=== PATIENT | male | born 1980 | race Caucasian/White ===

== ENCOUNTER 2017-11-18 19:01 | Emergency (ER) | payer OTHER ==
[2017-11-18 19:06] VITALS: BP 124/81; PULSE 72; RESP 16; TEMP 98.5; O2SAT 98
[2017-11-18 20:05] LABS: BASO % 0.6 % (0.0-2.0); EOS % 0.5 % (0.0-4.0); HEMOGLOBIN 15.4 g/dL (12.0-18.0); LYMPH # 1.7 K/uL (1.0-4.3); LYMPH % 25.5 % (20.0-40.0); MEAN CELL VOLUME 83.6 fl (80.0-94.0); MEAN CORPUSCULAR HEMOGLOBIN 28.3 pg (27.0-31.0); MEAN CORPUSCULAR HGB CONC 33.8 g/dL (33.0-37.0); MEAN PLATELET VOLUME 7.8 fl (7.2-11.7); MONO # 0.6 K/uL (0.0-0.8); MONO % 9.3 % (0.0-10.0); NEUT # 4.3 K/uL (1.8-7.0); NEUT % 64.1 % (50.0-75.0); RBC 5.44 Mil/uL (4.40-5.90); RED CELL DISTRIBUTION WIDTH 13.5 % (11.5-14.5); WHITE BLOOD COUNT 6.7 K/uL (4.8-10.8)
[2017-11-18 20:14] LABS: ALB/GLOB RATIO 1.4 (1.0-2.1); ALBUMIN 4.7 g/dL (3.5-5.0); ALT/SGPT 60 U/L (21-72); AST/SGOT 41 U/L (17-59); BLOOD UREA NITROGEN 14 mg/dl (9-20); CALCIUM 9.6 mg/dL (8.4-10.2); GFR AFRICAN-AMERICAN > 60; GFR NON-AFRICAN AMERICAN > 60
[2017-11-18 20:29] LABS: URINE BACTERIA RARE (<OCC); URINE BILIRUBIN NEGATIVE (NEGATIVE); URINE BLOOD NEGATIVE (NEGATIVE); URINE CLARITY SLIGHTY-CLOUDY (Clear); URINE COLOR YELLOW (YELLOW); URINE GLUCOSE (UA) NEG (Normal); URINE LEUKOCYTE ESTERASE TRACE Leu/uL (Negative); URINE PROTEIN 30 mg/dL (NEGATIVE); URINE UROBILINOGEN 0.2-1.0 mg/dL (0.2-1.0)
--- NOTE | 2017-11-18 20:47 | ED PDOC ---
HPI: Abdomen Time Seen by Provider: 11/18/17 19:17 Chief Complaint (Nursing): Abdominal Pain Chief Complaint (Provider): Abdominal Pain History Per: Patient History/Exam Limitations: no limitations Onset/Duration Of Symptoms: Days (x2) Current Symptoms Are (Timing): Still Present Additional Complaint(s): Patient is 36 y/o male who presents to the ED with x2 days of subjective fever, upper abdominal pain, and vomiting. Patient reports that he has no tolerance for food; pt is able to tolerate drinking significant fluids but large amounts of fluid make him feel that he will vomiting. Patient states he gets this way every couple months for the last 4 years. However, he states that usually it is less severe and goes away on its own; he's never been evaluated by a doctor for this. PMD: Thony Terrell ([place], [place]) Past Medical History Reviewed: Historical Data, Nursing Documentation, Vital Signs Vital Signs: Last Vital Signs Temp 98.5 F 11/19/17 01:38 Pulse 72 11/19/17 01:38 Resp 16 11/19/17 01:38 BP 124/81 11/19/17 01:38 Pulse Ox 98 11/19/17 01:38 - Medical History PMH: No Chronic Diseases - Surgical History Surgical History: No Surg Hx - Family History Family History: States: Unknown Family Hx - Immunization History Hx Tetanus Toxoid Vaccination: No Hx Influenza Vaccination: No Hx Pneumococcal Vaccination: No - Home Medications Home Medications: Ambulatory Orders Medication Instructions Recorded Omeprazole Magnesium [Prilosec] 10 mg PO DAILY #30 suspdr.pkt 11/18/17 - Allergies Allergies/Adverse Reactions: Allergies Allergy/AdvReac Type Severity Reaction Status Date / Time No Known Allergies Allergy Verified 11/18/17 19:03 Review of Systems Constitutional: Positive for: Fever (subjective) Respiratory: Negative for: Shortness of Breath Gastrointestinal: Positive for: Nausea, Vomiting, Abdominal Pain. Negative for : Diarrhea, Constipation Genitourinary Male: Negative for: Penile Discharge, Other (testicular swelling or pain) Physical Exam - Reviewed Nursing Documentation Reviewed: Yes Vital Signs Reviewed: Yes - Physical Exam Appears: Positive for: Non-toxic, No Acute Distress Head Exam: Positive for: ATRAUMATIC, NORMAL INSPECTION, NORMOCEPHALIC Skin: Positive for: Normal Color, Warm, Dry Eye Exam: Positive for: EOMI, Normal appearance, PERRL Neck: Positive for: Normal, Painless ROM, Supple Cardiovascular/Chest: Positive for: Regular Rate, Rhythm. Negative for: Murmur Respiratory: Positive for: Normal Breath Sounds. Negative for: Respiratory Distress Gastrointestinal/Abdominal: Positive for: Normal Exam, Soft. Negative for: Tenderness, Mass, Distended, Guarding Back: Positive for: Normal Inspection. Negative for: L CVA Tenderness, R CVA Tenderness Extremity: Positive for: Normal ROM. Negative for: Pedal Edema, Deformity Neurologic/Psych: Positive for: Alert, Oriented. Negative for: Motor/Sensory Deficits - Laboratory Results Result Diagrams: 11/18/17 20:00 11/18/17 20:00 - ECG O2 Sat by Pulse Oximetry: 98 (RA) Pulse Ox Interpretation: Normal Medical Decision Making Medical Decision Making: Time: 19:28 Impression: Signs and symptoms are consistent with gastritis will treat with GI cocktail --Labs sent to r/o intraabdominal pathology --Given PE not suspicious for acute abdomen --reassessment --Most likely discharge home and advise patient to follow up with PMD for Rx of PPI Initial Plan: --CMP --Magnesium --Phosphorous --CBC w/ diff --Pepcid --Protonix --UA Pain improved with GI coctail while in ED. No elevated WBC and abdominal labs WNL. Possibility of gastritis discussed with the patient. Pt advised to return to the emergency department if symptoms such as worsened pain, nausea, vomiting, diarrhea, fever, or other new symptoms develop. Pt will follow up with his PMD and given Rx for Omeprazole. ----- Scribe Attestation: Documented by Randall Reyes, acting as a scribe for Camilla Huddleston MD. Provider Scribe Attestation: All medical record entries made by the Scribe were at my direction and personally dictated by me. I have reviewed the chart and agree that the record accurately reflects my personal performance of the history, physical exam, medical decision making, and the department course for this patient. I have also personally directed, reviewed, and agree with the discharge instructions and disposition. 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 Take medications as prescribed. Return to the emergency department if symptoms worsen or if new symptoms develop. Prescriptions: Omeprazole Magnesium [Prilosec] 10 mg PO DAILY #30 [email or web address].pkt Instructions: [place] Diet, Gastritis (DC), Stomach Ache and Stomach Upset Forms: [facility] (Georgian)
== END 2017-11-18 23:52 | disposition home or self-care (01) ==
LOC: EDBD 19:01 → H.ER 19:01
DX: R10.13 Epigastric pain (principal)
CPT/HCPCS: 80053; 81003; 83735; 84100; 85025; 96374; 96375; 99283; C9113; J7030